=== PATIENT | male | born 1980 | race Two or more races ===

== ENCOUNTER → 2017-01-30 | Day surgery (SDC) | payer BC ==
[~2017-01-30] VITALS: Ht 177.8 cm; Wt 77.1 kg
[2017-01-30] VITALS (15 sets, daily range): BP systolic 101–126; BP diastolic 43–77
[~2017-01-30] MED LIST: Bupivacaine 0.25% Inj 30ml INJ ONE; Bupivacaine w/Epi 0.25% 30ml Vial INJ ONE; D5 1/2NS 1,000 ML IV SCH; DiphenhydrAMINE 50mg/ml Inj IVP PRN; Duramorph PF 10mg/10ml amp EPIDUR ONE; EPINEPHrine 1mg/1ml Amp ONE; HYDROmorphone 1mg/ml Carpuject SUBQ PRN; Hydromorphone 0.5mg/0.5ml inj IVP PRN; Kenalog-40 1ml Vial ONE; Ketorolac 30mg Inj IV PRN; Ketorolac 30mg Inj ONE; LR 1000ml 1,000 ML IVLG SCH; LR 1000ml ONE; Lidocaine 1% 10mg/ml/Epi 0.005mg/ml 30ml vial INJ ONE; MULTIVITAMINS1 EAC2 ORAL; Meperidine 25mg/ml Inj IV PRN; Metoclopramide 10mg/2ml Inj IVP PRN; Midazolam 2mg/2ml Inj IVP PRN; Midazolam 2mg/2ml Inj ONE; Morphine Sulfate PF 10 ML ONE; NS Irrig 4000ml IRRIG ONE; Norco 5mg/325mg tab ORAL PRN; Propofol 10mg/ml 20ml IV ONE; Sterile Water Irrig 1000ml IRRIG ONE; TRUVADA 200 MG1 EAC1 ORAL; Tylenol #3 tab (300mg/30mg) ORAL PRN; VALACYCLOVIR500 MG ORAL; ceFAZolin 1gm/50ml Premix 50 ML IV ONE; ceFAZolin sod 1gm in NS 55ml IVPB ONE; celeBREX 200mg Cap **SURGERY PATIENTS ONLY ORAL ONE; fentaNYL 100 mcg/2 mL IV ONE; oxyCONTIN 20mg tab ORAL ONE
--- NOTE | 2017-01-30 07:47 | Pre-Procedure Note/Attestation ---
Pre-Procedure Note/Attestation Complete Prior to Procedure Planned Procedure: left Procedure Narrative: knee arthroscopy, medial menisectomy Indications for Procedure Pre-Operative Diagnosis: left knee medial meniscus tear Attestation I attest that I discussed the nature of the procedure; its benefits; risks and complications; and alternatives (and the risks and benefits of such alternatives ), prior to the procedure, with the patient (or the patient's legal dairy supplies sales representative). I attest that, if there was a reasonable possibility of needing a blood transfusion, the patient (or the patient's legal dairy supplies sales representative) was given the [facility] standardized written summary, pursuant to the [place] Blood Safety Act ([place] Health and Safety Code # 1645, as amended). I attest that I re-evaluated the patient just prior to the surgery and that there has been no change in the patient's H&P, except as documented below: MAY WAGNER Jan 30, 2017 07:47
--- NOTE | 2017-01-30 07:48 | Operative Note - PDOC ---
Operative Note Operative Note Pre-op Diagnosis: left knee medial meniscus tear Procedure: see op report Post-op Diagnosis: same as pre-op plus Operative Findings: consistent w/pre-op dx studies Anesthesia: MAC Specimen: none Complications: none Condition: stable Estimated Blood Loss: none Implant(s) used?: MAY Vasques Jan 30, 2017 07:48
--- NOTE | 2017-01-30 07:56 | Pre-Procedure Note/Attestation ---
Pre-Procedure Note/Attestation Complete Prior to Procedure Planned Procedure: left Procedure Narrative: knee arthroscopic medial menisectomy Indications for Procedure Pre-Operative Diagnosis: left knee medial meniscus tear Attestation I attest that I discussed the nature of the procedure; its benefits; risks and complications; and alternatives (and the risks and benefits of such alternatives ), prior to the procedure, with the patient (or the patient's legal telemarketing representative). I attest that, if there was a reasonable possibility of needing a blood transfusion, the patient (or the patient's legal telemarketing representative) was given the [facility] standardized written summary, pursuant to the [place] Blood Safety Act ([place] Health and Safety Code # 1645, as amended). I attest that I re-evaluated the patient just prior to the surgery and that there has been no change in the patient's H&P, except as documented below: MAY WAGNER Jan 30, 2017 07:56
--- NOTE | 2017-01-30 07:56 | Operative Note - PDOC ---
Operative Note Operative Note Pre-op Diagnosis: left knee medial meniscus tear Procedure: see op report Post-op Diagnosis: same as pre-op plus Operative Findings: consistent w/pre-op dx studies Anesthesia: MAC Specimen: none Complications: none Condition: stable Estimated Blood Loss: none MAY WAGNER Jan 30, 2017 07:56
--- NOTE | 2017-01-30 08:31 | Anethesia Preoperative Eval ---
Anesthesia Pre-op PMH/ROS General Date of Evaluation: Jan 30, 2017 Time of Evaluation: 08:27 Anesthesiologist: Tulio ASA Score: ASA 2 Mallampati Score Class I : Soft palate, uvula, fauces, pillars visible Class II: Soft palate, uvula, fauces visible Class III: Soft palate, base of uvula visible Class IV: Only hard plate visible Mallampati Classification: Class II Surgeon: Adrian Diagnosis: L knee pain Surgical Procedure: L knee arthroscopy Anesthesia History: none Family History: no anesthesia problems Allergies: Coded Allergies: No Known Allergies (Unverified , 01/29/17) Medications: see eMAR Past Medical History Cardiovascular: Denies: CAD, HTN, [place], arrhythmia, other, valve dz Pulmonary: Denies: COPD, JULISSA, asthma, other Gastrointestinal/Genitourinary: Reports: GERD, Denies: CRI, ESRD, other Neurologic/Psychiatric: Denies: CVA, TIA, dementia, depression/anxiety, other Endocrine: Denies: DM, hypothyroidism, other, steroids HEENT: Denies: [place] (L), [place] (R), cataract (L), cataract (R), glaucoma, other Hematology/Immune: Reports: other - h/o Syphilis, herpes, Denies: DVT, anemia, bleeding disorder Musculoskeletal/Integumentary: Denies: DDD, DJD, OA, RA, edema, other PMH Narrative: as above PSxH Narrative: Appendectomy Anesthesia Pre-op Phys. Exam Physician Exam Last Vital Signs Date Time Temp Pulse Resp B/P Pulse Ox O2 Delivery O2 Flow Rate FiO2 01/30/17 07:44 98.4 59 18 126/77 96 Room Air Constitutional: NAD Neurologic: CN 2-12 intact Cardiovascular: RRR, no M/R/G Respiratory: CTA Gastrointestinal: S/NT/ND Airway Exam Mallampati Score: Class II MO: full Neck: flexible ROM: full Teeth: intact Dentures: no lower, no upper Anesthesia Pre-op A/P Labs see chart Studies Pre-op Studies: EKG - NSR Risk Assessment & Plan Assessment: ASA 2 Plan: GA with LMA Status Change Before Surgery: No Pre-Antibiotics Drug: Ancef 1gr. Given Within 1 Hr of Incision: Yes Time Given: 08:50 LEONELA PEREZ M.D. Jan 30, 2017 08:31
--- NOTE | 2017-01-30 11:08 | Immediate Post-Op Evaluation ---
Immediate Post-Op Evalulation Immediate Post-Op Evalulation Procedure: L knee arthroscopy Date of Evaluation: Jan 30, 2017 Time of Evaluation: 09:46 IV Fluids: 800 Blood Products: none Estimated Blood Loss: min Urinary Output: none Blood Pressure Systolic: 116 Blood Pressure Diastolic: 58 Pulse Rate: 76 Respiratory Rate: 20 O2 Sat by Pulse Oximetry: 99 Temperature (Fahrenheit): 97.6 Pain Score (1-10): 2 Nausea: No Vomiting: No Complications none Patient Status: reacts, patent, none Hydration Status: adequate LEONELA PEREZ M.D. Jan 30, 2017 11:08
--- NOTE | 2017-01-30 11:09 | 48 Hour Post Anesthesia Eval ---
Post Anesthesia Evaluation Procedure: L knee arthroscopy Date of Evaluation: Jan 30, 2017 Time of Evaluation: 11:08 Blood Pressure Systolic: 128 0: 72 Pulse Rate: 62 Respiratory Rate: 18 Temperature (Fahrenheit): 97.6 O2 Sat by Pulse Oximetry: 98 Airway: patent Nausea: No Vomiting: No Pain Intensity: 2 Hydration Status: adequate Cardiopulmonary Status: stable Mental Status/LOC: patient returned to baseline Follow-up Care/Observations: n/a Post-Anesthesia Complications: none Follow-up care needed: ready to discharge LEONELA PEREZ M.D. Jan 30, 2017 11:09
--- NOTE | 2017-01-30 21:28 | Operative Note - Dictated ---
DATE OF OPERATION: 01/30/2017 SURGEON: Jose Campbell M.D. PREOPERATIVE DIAGNOSIS: Left knee peripheral medial meniscal tear. POSTOPERATIVE DIAGNOSES: 1. Left knee peripheral medial meniscal tear. 2. Grade 2 chondral damage of medial patellar facet. PROCEDURES: 1. Left knee arthroscopic medial meniscus repair with a Fast-Fix anchor. 2. Synovectomy of medial patellofemoral compartment. INDICATION FOR PROCEDURE: The patient is a 36-year-old gentleman, who has continued left knee pain. He had MRI, which showed a peripheral medial meniscus tear. Given that he had continued symptoms despite conservative treatment, he elected to undergo left knee diagnostic arthroscopy with possible medial meniscus repair versus meniscectomy. Risks, limitations, expectations, and complications of the procedure were discussed in detail. All questions were addressed. DESCRIPTION OF PROCEDURE: An informed consent was obtained. The patient was brought to the operating room and placed under monitored anesthesia control. Tourniquet was applied to the left proximal thigh. Intraarticular injection containing 0.25% Marcaine plain was injected. Left leg was prepped and draped in a sterile manner. Portal sites were injected with 1% lidocaine with epinephrine. Esmarch was used to exsanguinate the extremity. Inferolateral stab incision was then made. Trocar was introduced into the knee joint. There is a grade 2 chondral damage in the medial patellar facet and hypertrophic synovial tissue in the patellofemoral compartment. Medial compartment was entered. Medial working portal was established and the probe was then placed into the medial compartment. At this point, the peripheral aspect of the meniscus was probed. There was a 1 cm peripheral tear of the middle body of the meniscus. Therefore, synovectomy of the medial patellofemoral and lateral compartment was performed to better allow access into the joint. The camera was placed in the medial compartment through lateral portal and Fast-Fix anchor was then placed. Once this was done, the camera was repositioned in the lateral compartment. The meniscus was again probed and at this point, it was seen to be nice and stable. An additional anchor was not warranted. Therefore, instruments were removed and portal sites were closed with 3-0 Monocryl sutures. Compression dressing was applied. The patient was awoken and taken to recovery room with stable vital signs. ESTIMATED BLOOD LOSS: None. COMPLICATIONS: None. SPECIMENS: None. IMPLANTS: Include one Fast-Fix anchor. Jose Campbell M.D. DR: GABRIELLA JOB#: [id number] CC:
== END | disposition home or self-care (01) ==
LOC: SUR 06:35
DX: S83.222A Peripheral tear of medial meniscus, current injury, left knee, initial encounter (principal); X50.0XXA Overexertion from strenuous movement or load, initial encounter; Y93.18 Activity, surfing, windsurfing and boogie boarding; Y92.832 Beach as the place of occurrence of the external cause; Y99.8 Other external cause status; M94.8X6 Other specified disorders of cartilage, lower leg; B00.9 Herpesviral infection, unspecified; A63.0 Anogenital (venereal) warts; K21.9 Gastro-esophageal reflux disease without esophagitis; Z87.898 Personal history of other specified conditions; Z90.49 Acquired absence of other specified parts of digestive tract
CPT/HCPCS: 29882; 97161; J0171; J0690; J1885; J2250; J2274; J2405; J2704; J2765; J3010; J3301; J3490; J7120; 94003; 94150